=== PATIENT | female | born 1995 | race Caucasian/White ===

== ENCOUNTER 2016-06-19 17:28 | Emergency (ER) | payer MEDICAID ==
[~2016-06-19] VITALS: Wt 100.0 kg
--- NOTE | 2016-06-19 18:39 | ERD ---
ER Documentation Chief Complaint Date/Time DATE: 06/19/16 TIME: 18:37 Chief Complaint VAG BLEED SINCE LAST NIGHT GETTING WORSE. 5 WKS PREG. NO DYSURIA HPI Patient is a 20-year-old female who is who presents the ED with mild vaginal bleeding and mild pelvic pain since yesterday. She states that her last normal menstrual period was 05/11/16. She does have a doctor at the [facility] but is unsure of name. She denies fever or chills. She denies abdominal pain, nausea, vomiting or diarrhea. She denies headache or dizziness. Denies chest pain, shortness of breath or difficulty breathing. Denies leg pain or swelling. She states that she has had minimal bleeding and uses one light bad. Denies dysuria or urgency or back pain. no other complaints. ROS All systems reviewed and are negative except as per history of present illness. Medications Home Meds Active Scripts Nitrofurantoin Monohyd Macrocr* (Macrobid*) 100 Mg Capsr, 100 MG PO BID for 7 Days, CAP Prov:ANGELICA REYES PA-C 06/19/16 Acetaminophen* (Tylophen*) 500 Mg Capsule, 1 CAP PO Q6H Y for PAIN AND OR ELEVATED TEMP, #20 CAP Prov:ANGELICA REYES PA-C 06/19/16 Physical Exam Vitals Vital Signs Date Time Temp Pulse Resp B/P Pulse Ox O2 Delivery O2 Flow Rate FiO2 06/19/16 17:35 98.6 99 18 129/80 100 Physical Exam GENERAL: Well-developed, well-nourished female. Appears in no acute distress. LUNG: Clear to auscultation bilaterally. No rhonchi, wheezing, rales or coarse breath sounds. HEART: Regular rate and rhythm. No murmurs, rubs or gallops. ABDOMEN: No scars, ecchymosis or rashes noted. Soft, nontender, and nondistended. Positive bowel sounds in all four quadrants. No rebound tenderness , no guarding. (-) McBurneys point tenderness. No CVA tenderness. BACK: No midline tenderness. Extremities: Equal pulses bilaterally. No peripheral clubbing, cyanosis or edema. No unilateral leg swelling. NEUROLOGIC: Alert and oriented. Moving all four extremities. 5/5 strength in all extremities. Normal speech. Steady gait. SKIN: Normal color. Warm and dry. No rashes or lesions. Capillary refill < 2 seconds Result Diagram: 06/19/16 1825 Results 24 hrs Laboratory Tests Test 06/19/16 18:25 Basophils # 0.010^3/ul Basophils % 0.4% Beta HCG, Quantitative 44002.0mIU/ml Blood Morphology Comment Eosinophils # 0.110^3/ul Eosinophils % 0.7% Hematocrit 41.6% Hemoglobin 14.1g/dl Lymphocytes # 2.310^3/ul Lymphocytes % 22.8% Mean Corpuscular Hemoglobin 27.8pg Mean Corpuscular Hemoglobin Concent 33.8g/dl Mean Corpuscular Volume 82.3fl Mean Platelet Volume 8.1fl Monocytes # 0.710^3/ul Monocytes % 6.5% Neutrophils # 7.010^3/ul Neutrophils % 69.6% Nucleated Red Blood Cells # 0.010^3/ul Nucleated Red Blood Cells % 0.0/100WBC Platelet Count 07474^3/UL Red Blood Count 5.0610^6/ul Red Cell Distribution Width 14.3% Urine Bilirubin NEGATIVE Urine Clarity CLEAR Urine Color LT. YELLOW Urine Glucose NEGATIVE% Urine Hemoglobin 2+ Urine Ketones NEGATIVE Urine Leukocyte Esterase TRACE Urine Microscopic RBC 2-5/HPF Urine Microscopic WBC 0-2/HPF Urine Nitrite NEGATIVE Urine Specific [place] 1.015 Urine Squamous Epithelial Cells FEW Urine Total Protein NEGATIVE Urine Urobilinogen 0.2 E.U./dL Urine pH 7.0 White Blood Count 10.110^3/ul Procedures/MDM ER COURSE: I kept the patient and/or family informed of laboratory and diagnostic imaging results throughout the emergency room course. EKG, MONITORS, & DIAGNOSTIC IMAGING: [place] [id number] Radiology Main Line: [phone] DIAGNOSTIC IMAGING REPORT Patient: SERENA JANSEN : 1995 Age: 20 Sex: F MR #: [id number] DOS: 06/19/16 1805 Ordering MD: ANGELICA REYES PA-C Location: [facility]TE Room/Bed: PROCEDURE: OBSTETRICAL ULTRASOUND WITH ENDOVAGINAL IMAGES CLINICAL INDICATION: Vaginal Bleed () TECHNIQUE: Multiple sonographic images of the pelvis were obtained utilizing a transabdominal and endovaginal technique. The images were reviewed on a PACS workstation. COMPARISON: None. LMP: 05/11/2016 The estimated gestational age by LMP is 5 weeks, 40 . The estimated date of delivery by LMP is eased 02/15/2017 . FINDINGS: The uterus measures 10.1 x 4.9 x 5.6 cm. A likely intrauterine gestational sac is identified with mean sac diameter of 1.39 cm which would be consistent with a gestational age of 6 weeks, 0 days and an estimated date of delivery of 02/12/2017. A yolk sac is identified within it , but no pole. The right ovary measures 4.0 x 2.2 x 2.2 cm. The left ovary measures 3.6 x 1.8 x 1.6 cm. There is normal vascular flow in both ovaries. No significant ovarian lesions are seen. There is trace pelvic free fluid. IMPRESSION: A likely intrauterine gestational sac with a yolk sac is identified which would be consistent with a gestational age of 6 weeks, 0 days. No pole is identified within it. Findings are likely due to an early intrauterine although an ectopic cannot be entirely excluded. Short- term follow-up ultrasound and serial Beta HCG measurements are recommended for further evaluation. Bilateral ovaries and adnexa are unremarkable. RPTAT: EE Physician Ilia Date Time Electronically viewed and signed by Physician Ilia on 06/19/2016 19:05 RA/ CC: ANGELICA REYES PA-C LAB INTERPRETATION: CBC showed no evidence of systemic infection or severe anemia.UA showed no evidence nitrites or hematuria, she has trace leukocytes. [facility] Rh: B+ MEDICAL DECISION MAKING: This is a 20-year-old female who is who presents with vaginal bleeding and pelvic pain 1 day. Vital signs were reviewed. Patient is afebrile. Patient is not hypoxic. Patient is not toxic or ill-appearing. I consulted with Dr. Pickett, laborist insurance application investigator who reviewed her labs and imaging studies. Patient has an IUP but needs to follow up with her OB doctor. Patient is being seen at [facility], unsure of OB doctor's name. Low suspicion for ovarian torsion, PID, tuboovarian abscess, ectopic , bowel obstruction, pyelonephritis appendicitis, cervicitis, septic , molar , HELLP syndrome, preeclampsia, eclampsia, placenta previa, placenta abruptia. Patient also has a UTI. DISCHARGE: At this time, patient is stable for discharge and outpatient management with no new complaints during the ER course. Patient was sent home with Macrobid for infection and Tylenol for pain. Advised patient to rest and use heat packs and to follow-up with OB doctor on Wednesday06/23/2016 at [facility]. Copies of labs and imaging studies given to patient. Patient will be discharged home with instructions to recheck for new or worsening symptoms such as fever, nausea , weakness, LOC and to follow up with primary care in the next 1-2 days. Patient was advised to return to the ER for any new or worsening symptoms. Plan was discussed and patient and/or family understands and agrees. Home instructions were given. Departure Diagnosis: Primary Impression: Vaginal bleeding in patient at less than 20 weeks gestation Condition: Stable ANGELICA REYES PA-C Jun 19, 2016 18:39
[2016-06-19 18:40] LABS: ADD UMIC YES; URINE BILIRUBIN (Dip) NEGATIVE (NEGATIVE); URINE BLOOD (Dip) 2+ (NEGATIVE); URINE COLOR LT. YELLOW (YELLOW); URINE GLUCOSE (Dip) NEGATIVE (NEGATIVE); URINE KETONES (Dip) NEGATIVE (NEGATIVE); URINE LEUKOCYTE ESTERASE (Dip) TRACE (NEGATIVE); URINE NITRITE (Dip) NEGATIVE (NEGATIVE); URINE TOTAL PROTEIN (Dip) NEGATIVE (NEGATIVE); URINE UROBILINOGEN (Dip) 0.2 E.U./dL (0.1-1.0)
[2016-06-19 18:41] LABS: BASOPHILS % 0.4 % (0.0-2.0); EOSINOPHILS # 0.1 10^3/ul (0.0-0.5); EOSINOPHILS % 0.7 % (0.0-7.0); HEMATOCRIT 41.6 % (37.0-47.0); HEMOGLOBIN 14.1 g/dl (12.0-16.0); LYMPHOCYTES # 2.3 10^3/ul (0.8-2.9); LYMPHOCYTES % 22.8 % (15.0-51.0); MEAN CORPUSCULAR HEMOGLOBIN 27.8 pg (29.0-33.0); MEAN CORPUSCULAR HGB CONC 33.8 g/dl (32.0-37.0); MEAN CORPUSCULAR VOLUME 82.3 fl (82.0-101.0); MEAN PLATELET VOLUME 8.1 fl (7.4-10.4); MONOCYTE # 0.7 10^3/ul (0.3-0.9); MONOCYTES % 6.5 % (0.0-11.0); NEUTROPHILS % 69.6 % (39.0-77.0); PLATELET COUNT 266 10^3/UL (140-440); RED BLOOD COUNT 5.06 10^6/ul (4.20-5.40); RED CELL DISTRIBUTION WIDTH 14.3 % (11.5-14.5); UNCORRECTED WBC 10.1 10^3/ul (4.8-10.8); WHITE BLOOD COUNT 10.1 10^3/ul (4.8-10.8)
[2016-06-19 18:46] LABS: CONDITION 1
[2016-06-19 18:57] LABS: SQUAMOUS EPITHELIAL CELL,UR FEW
--- NOTE | 2016-06-19 19:05 | RADRPT ---
PROCEDURE: OBSTETRICAL ULTRASOUND WITH ENDOVAGINAL IMAGES CLINICAL INDICATION: Vaginal Bleed () TECHNIQUE: Multiple sonographic images of the pelvis were obtained utilizing a transabdominal and endovaginal technique. The images were reviewed on a PACS workstation. COMPARISON: None. LMP: 05/11/2016 The estimated gestational age by LMP is 5 weeks, 40 . The estimated date of delivery by LMP is eased 02/15/2017 . FINDINGS: The uterus measures 10.1 x 4.9 x 5.6 cm. A likely intrauterine gestational sac is identified with mean sac diameter of 1.39 cm which would be consistent with a gestational age of 6 weeks, 0 days and an estimated date of delivery of 7. A yolk sac is identified within it, but no pole. The right ovary measures 4.0 x 2.2 x 2.2 cm. The left ovary measures 3.6 x 1.8 x 1.6 cm. There is no rmal vascular flow in both ovaries. No significant ovarian lesions are seen. There is trace pelvic free fluid. IMPRESSION: A likely intrauterine gestational sac with a yolk sac is identified which would be consistent with a gestational age of 6 weeks, 0 days. No pole is identified within it. Findings are likely due to an early intrauterine although an ectopic cannot be entirely excluded. S hort-term follow-up ultrasound and serial Beta HCG measurements are recommended for further evaluati on. Bilateral ovaries and adnexa are unremarkable. RPTAT: EE Physician Ilia Date Time Electronically viewed and signed by Fredy Pierce Physician on 06/19/2016 19:05 /
[2016-06-19] MEDS ORDERED: ACET500C5 PO (19:29)
[2016-06-19] MEDS ORDERED: NITR-58 PO (19:30)
== END 2016-06-19 20:00 | disposition home or self-care (01) ==
LOC: FTE 17:28
DX: O20.9 Hemorrhage in early pregnancy, unspecified (principal); R10.2 Pelvic and perineal pain; Z3A.01 Less than 8 weeks gestation of pregnancy
CPT/HCPCS: 36415; 76801; 76817; 81001; 81003; 84702; 85025; 86900; 86901; Z7502

== ENCOUNTER 2016-08-10 18:46 | Emergency (ER) | payer MEDICAID, OTHER ==
[~2016-08-10] VITALS: Ht 170.2 cm; Wt 99.5 kg
[~2016-08-10 18:46] MED LIST: ACET500C5 PO; NITR-58 PO
[2016-08-10 18:53] VITALS: Ht 170.2 cm; Wt 99.5 kg
[2016-08-10] MEDS ORDERED: METOCLOPRAMIDE 10 MG INJ IV ONE (20:30)
[2016-08-10] MEDS ORDERED: SOD CHLORIDE 0.9% 1,000 ML IV ONE (20:30)
[2016-08-10 20:40] LABS: ADD UMIC YES; URINE BILIRUBIN (Dip) 1+ (NEGATIVE); URINE BLOOD (Dip) NEGATIVE (NEGATIVE); URINE COLOR LT. YELLOW (YELLOW); URINE GLUCOSE (Dip) NEGATIVE (NEGATIVE); URINE KETONES (Dip) 3+ (NEGATIVE); URINE LEUKOCYTE ESTERASE (Dip) TRACE (NEGATIVE); URINE NITRITE (Dip) NEGATIVE (NEGATIVE); URINE TOTAL PROTEIN (Dip) TRACE (NEGATIVE); URINE UROBILINOGEN (Dip) 0.2 E.U./dL (0.1-1.0)
--- NOTE | 2016-08-10 20:43 | RADRPT ---
PROCEDURE: US Obstetrical 1st Trimester CLINICAL INDICATION: Vomiting TECHNIQUE: Multiple real-time images were acquired of the patient's maternal abdomen utilizing a curved array transducer. COMPARISON: 06/19/2016 FINDINGS: There is a well implanted gestational sac within the fundus of the uterus. No yolk sac is identifie d. There is a single pole with a crown-rump length of 6.8 cm which corresponds to a gestation al age of 13 weeks 0 days plus or minus 1 week. There is positive cardiac activity being a t 157 beats per minute. The placenta is implanted in the fundus and is grade 0. Neither ovary was identified. No adnexal mass or free fluid is identified IMPRESSION: 1. A single live intrauterine fetus which by crown-rump length corresponds to a gestational age of 13 weeks 0 days plus or minus 1 week. This is compatible with active growth since the previous scan. The estimated date of delivery based on today's sonogram is 02/15/2017. 2. Neither ovary is identified. 3. No adnexal mass or free fluid is evident. Physician Joe Date Time Electronically viewed and signed by Physician Joe on 08/10/2016 20:42 RH/
[2016-08-10 20:44] LABS: ADD SCAN DIFF NO
[2016-08-10 20:47] LABS: BASOPHILS % 0.2 % (0.0-2.0); EOSINOPHILS # 0.1 10^3/ul (0.0-0.5); EOSINOPHILS % 0.4 % (0.0-7.0); HEMATOCRIT 42.2 % (37.0-47.0); HEMOGLOBIN 13.7 g/dl (12.0-16.0); LYMPHOCYTES # 2.6 10^3/ul (0.8-2.9); LYMPHOCYTES % 22.1 % (15.0-51.0); MEAN CORPUSCULAR HEMOGLOBIN 27.3 pg (29.0-33.0); MEAN CORPUSCULAR HGB CONC 32.5 g/dl (32.0-37.0); MEAN CORPUSCULAR VOLUME 84.2 fl (82.0-101.0); MEAN PLATELET VOLUME 9.8 fl (7.4-10.4); MONOCYTE # 0.8 10^3/ul (0.3-0.9); MONOCYTES % 6.6 % (0.0-11.0); NEUTROPHIL # 8.3 10^3/ul (1.6-7.5); NEUTROPHILS % 70.4 % (39.0-77.0); PLATELET COUNT 271 10^3/UL (140-415); RED BLOOD COUNT 5.01 10^6/ul (4.20-5.40); RED CELL DISTRIBUTION WIDTH 14.2 % (11.5-14.5); WHITE BLOOD COUNT 11.7 10^3/ul (4.8-10.8)
[2016-08-10 20:49] LABS: ICTOTEST NEGATIVE (NEGATIVE)
[2016-08-10 20:50] LABS: BACTERIA,URINE MANY; SQUAMOUS EPITHELIAL CELL,UR MODERATE; URINE RBCS 0-2 /HPF (0)
[2016-08-10] MEDS ORDERED: METO10TA92 PO (20:59)
[2016-08-10 21:11] LABS: ALBUMIN 4.4 g/dl (3.3-4.9); ALBUMIN/GLOBULIN RATIO 1.37; BILIRUBIN,INDIRECT 0.3 mg/dl (0-1.1); BILIRUBIN,TOTAL 0.3 mg/dl (0.2-1.3); CALCIUM 9.3 mg/dl (8.4-10.2); CREATININE 0.55 mg/dl (0.44-1.00); POTASSIUM 3.8 mmol/L (3.5-5.1); TOTAL PROTEIN 7.6 g/dl (6.1-8.1)
[2016-08-10] MEDS ORDERED: NITR-58 PO (21:20)
[2016-08-10 21:37] VITALS: BP 106/63; PULSE 86; RESP 16; TEMP 98.8
--- NOTE | 2016-08-11 00:22 | ERA ---
ER Documentation Chief Complaint Date/Time DATE: 08/11/16 TIME: 00:17 Chief Complaint n/v 12 weeks . sent for iv hydration. HPI Patient is a 20-year-old female who presents complaining of excessive vomiting and weight loss. Patient is 12 weeks . Patient was recently seen at the clinic who told her to come to the ER for further evaluation. Patient claims that she has lost 15 pounds in the past 2 weeks. Patient denies any vaginal bleeding, pelvic pain, discharge, dyspareunia, change in bowel or bladder habits, headache shortness of breath, back pain or chest pain. Patient is only taking vitamins. Patient also gives a history of a vaginal bleed consisting of spotting about 1 month ago. Patient was seen here in the ER for that occurrence. He was discharged for symptomatic precautions. ROS All systems reviewed and are negative except as per history of present illness. Medications Home Meds Active Scripts Nitrofurantoin Monohyd Macrocr* (Macrobid*) 100 Mg Capsr, 100 MG PO BID for 14 Days, CAP Prov:DEANDRE REESE PA-C 08/10/16 Metoclopramide* (Reglan*) 10 Mg Tablet, 10 MG PO Q6 Y for NAUSEA AND/OR VOMITING , #10 TAB Prov:DEANDRE REESE PA-C 08/10/16 Nitrofurantoin Monohyd Macrocr* (Macrobid*) 100 Mg Capsr, 100 MG PO BID for 7 Days, CAP Prov:ANGELICA REYES PA-C 06/19/16 Acetaminophen* (Tylophen*) 500 Mg Capsule, 1 CAP PO Q6H Y for PAIN AND OR ELEVATED TEMP, #20 CAP Prov:ANGELICA REYES PA-C 06/19/16 Allergies Allergies: Coded Allergies: No Known Allergy (Unverified , 08/10/16) PMhx/Soc Medical and Surgical Hx: pt denies Medical Hx, pt denies Surgical Hx History of Surgery: No Anesthesia Reaction: No Hx Neurological Disorder: No Hx Respiratory Disorders: No Hx Cardiac Disorders: No Hx Psychiatric Problems: No Hx Miscellaneous Medical Probl: No Hx Alcohol Use: No Hx Substance Use: No Hx Tobacco Use: No Physical Exam Vitals Vital Signs Date Time Temp Pulse Resp B/P Pulse Ox O2 Delivery O2 Flow Rate FiO2 08/10/16 21:37 98.8 86 16 106/63 98 Room Air 08/10/16 18:53 98.7 87 18 128/65 99 Physical Exam Const: Obese 20-year-old female is 12 weeks . Head: Atraumatic Eyes: Normal Conjunctiva ENT: Normal External Ears, Nose and Mouth. Neck: Full range of motion..~ No meningismus. Resp: Clear to auscultation bilaterally Cardio: Regular rate and rhythm, no murmurs Abd: Soft, non tender, non distended. Normal bowel sounds Skin: No petechiae or rashes Back: No midline or flank tenderness Ext: No cyanosis, or edema Neur: Awake and alert Psych: Normal Mood and Affect Result Diagram: 08/10/16202508/10/162025 Results 24 hrs Laboratory Tests Test 08/10/16 20:25 08/10/16 20:26 Urine Color LT. YELLOW Urine Clarity CLEAR Urine pH 6.5 Urine Specific [place] 1.025 Urine Ketones 3+ Urine Nitrite NEGATIVE Urine Bilirubin 1+ Urine Ictotest NEGATIVE Urine Urobilinogen 0.2 E.U./dL Urine Leukocyte Esterase TRACE Urine Microscopic RBC 0-2/HPF Urine Microscopic WBC 10-25/HPF Urine Squamous Epithelial Cells MODERATE Urine Bacteria MANY Urine Hemoglobin NEGATIVE Urine Glucose NEGATIVE% Urine Total Protein TRACE White Blood Count 11.710^3/ul Red Blood Count 5.0110^6/ul Hemoglobin 13.7g/dl Hematocrit 42.2% Mean Corpuscular Volume 84.2fl Mean Corpuscular Hemoglobin 27.3pg Mean Corpuscular Hemoglobin Concent 32.5g/dl Red Cell Distribution Width 14.2% Platelet Count 20902^3/UL Mean Platelet Volume 9.8fl Neutrophils % 70.4% Lymphocytes % 22.1% Monocytes % 6.6% Eosinophils % 0.4% Basophils % 0.2% Nucleated Red Blood Cells % 0.0/100WBC Neutrophils # 8.310^3/ul Lymphocytes # 2.610^3/ul Monocytes # 0.810^3/ul Eosinophils # 0.110^3/ul Basophils # 0.010^3/ul Nucleated Red Blood Cells # 0.010^3/ul Sodium Level 137mmol/L Potassium Level 3.8mmol/L Chloride Level 106mmol/L Carbon Dioxide Level 22mmol/L Anion Gap 13 Blood Urea Nitrogen 8mg/dl Creatinine 0.55mg/dl Glucose Level 97mg/dl Calcium Level 9.3mg/dl Total Bilirubin 0.3mg/dl Direct Bilirubin 0.00mg/dl Indirect Bilirubin 0.3mg/dl Aspartate Amino Transf (AST/SGOT) 21IU/L Alanine Aminotransferase (ALT/SGPT) 41IU/L Alkaline Phosphatase 44IU/L Total Protein 7.6g/dl Albumin 4.4g/dl Globulin 3.20g/dl Albumin/Globulin Ratio 1.37 Current Medications Medications (Trade) Dose Ordered Sig/[place] Route PRN Reason Start Time Stop Time Status Last Admin Dose Admin Sodium Chloride (NS) 1,000 ml @ 1,000 mls/hr Q1H ONCE IV 08/10/16 20:30 08/10/16 21:29 DC 08/10/16 20:28 Metoclopramide HCl (Reglan) 5 mg ONCE ONCE IV 08/10/16 20:30 08/10/16 20:31 DC 08/10/16 20:28 Procedures/MDM Patient is a 20-year-old female who is 12 weeks . Was seen about 1 month ago for history of vaginal bleed. Patient sister since then shows that she has not lost any weight. We will go ahead and get a urinalysis to rule out any infection. We will go ahead and get an ultrasound to evaluate the status of the fetus. Ultrasound was unremarkable showing a healthy viable fetus and the urinalysis applied possible wound infection of the urinary tract. We will go ahead and discharge the patient after p.o. tolerance test. Patient's past p.o. tolerance was discharged with Macrobid for the urinary tract infection as well as a short course of Reglan with return precautions for continued nausea and vomiting. Have also advised to return to clinic for evaluation within the next 1-3 days. I spoke to my attending and he agrees with my assessment and plan about this case. Departure Diagnosis: Primary Impression: Urinary tract infection during Qualified Code: O23.41 - Urinary tract infection during , first trimester Additional Impression: Nausea and vomiting during Condition: Stable Patient Instructions: Urinary Tract Infections in Women, Vomiting And Diarrhea , Nonspecific (Adult) Additional Instructions: Follow-up with [facility] within the next 1-3 days. Return to emergency department if symptoms worsen. DEANDRE REESE PA-C Aug 11, 2016 00:22
== END 2016-08-10 21:37 | disposition home or self-care (01) ==
LOC: FTE 18:46
DX: O23.41 Unspecified infection of urinary tract in pregnancy, first trimester (principal); Z3A.12 12 weeks gestation of pregnancy
CPT/HCPCS: 76801; 80053; 81001; 81003; 85025; 96361; 96374; J2765; J7030; Z7502